=== PATIENT | female | born 1985 | race Caucasian/White ===

== ENCOUNTER 2017-06-23 19:24 | Emergency (ER) | payer MEDICAID ==
[~2017-06-23] VITALS: Ht 162.6 cm; Wt 113.3 kg
[2017-06-23 19:27] VITALS: BP 127/82
[2017-06-23] MEDS ORDERED: LIDOCAINE 1%, 20ML ONE (19:43)
[2017-06-23] MEDS ORDERED: DIPH,PERTUSS(ACELL),TET VAC/PF 0.5 ML IM-VACC ONE ×2 (19:43→20:00)
[2017-06-23] MEDS ORDERED: LIDOCAINE 1%, 20ML SQ ONE (20:00)
[2017-06-23] MEDS ORDERED: BACITRACIN ZINC OINT 500U/GM, 0.9 GM ONE (21:34)
== END 2017-06-23 20:11 | disposition home or self-care (01) ==
LOC: ED 20:05
DX: S61.210A Laceration without foreign body of right index finger without damage to nail, initial encounter (principal); W25.XXXA Contact with sharp glass, initial encounter; Y93.G1 Activity, food preparation and clean up; Y92.000 Kitchen of unspecified non-institutional (private) residence as the place of occurrence of the external cause; Y99.8 Other external cause status
CPT/HCPCS: 12002; 90471; 90715; 99283

== ENCOUNTER 2018-08-31 15:38 | Emergency (ER) | payer MEDICAID ==
[~2018-08-31] VITALS: Ht 162.6 cm; Wt 99.9 kg
[2018-08-31 17:18] LABS: BASOPHILS # (AUTO) 0.03 x10^3/uL (0-0.1); BASOPHILS % (AUTO) 0 % (0-1); EOSINOPHILS # (AUTO) 0.05 x10^3/uL (0-0.4); EOSINOPHILS % (AUTO) 0 % (1-7); LYMPHOCYTES # (AUTO) 2.53 x10^3/uL (1-3.4); LYMPHOCYTES % (AUTO) 19 % (22-44); MD NO; MEAN CORPUSCULAR HEMOGLOBIN 29.9 pg (27.0-34.8); MEAN CORPUSCULAR HGB CONC 33.7 g/dL (32.4-35.8); MEAN CORPUSCULAR VOLUME 88.7 fL (80-100); MEAN PLATELET VOLUME 7.4 fL (7.4-10.4); MONOCYTES # (AUTO) 1.14 x10^3/uL (0.2-0.8); MONOCYTES % (AUTO) 9 % (2-9); NEUTROPHILS # (AUTO) 9.34 x10^3/uL (1.8-6.8); NEUTROPHILS % (AUTO) 71 % (42-75); PLATELET COUNT 351 x10^3/uL (130-400); RED CELL DISTRIBUTION WIDTH 13.4 % (9.6-15.2)
[2018-08-31 17:30] LABS: ALANINE AMINOTRANSFERASE 27 U/L (12-78); ALBUMIN 3.2 g/dL (3.4-5.0); ANION GAP 6 mmol/L (5-15); CALCIUM 8.5 mg/dL (8.5-10.1); CHLORIDE 107 mmol/L (98-107); CREATININE 0.99 mg/dL (0.55-1.02)
[2018-08-31 17:35] LABS: ALKALINE PHOSPHATASE 85 U/L (45-117); BILIRUBIN,TOTAL 0.7 mg/dL (0.2-1.0); TOTAL PROTEIN 7.4 g/dL (6.4-8.2)
[2018-08-31 17:41] LABS: MICROSCOPIC INDICATED
[2018-08-31 17:42] LABS: CULTURE INDICATED? YES
[2018-08-31] MEDS ORDERED: CEFTRIAXONE 1,000 MG ONE (18:46)
[2018-08-31] MEDS ORDERED: CEFTRIAXONE 1,000 MG IM ONE (19:00)
[2018-08-31 19:26] VITALS: BP 109/78
== END 2018-08-31 19:37 | disposition home or self-care (01) ==
LOC: ED 19:15
DX: N30.90 Cystitis, unspecified without hematuria (principal); D72.829 Elevated white blood cell count, unspecified
CPT/HCPCS: 36415; 80053; 81001; 84703; 85025; 87077; 87086; 87186; 96372; 99283; J0696

== ENCOUNTER 2020-03-21 16:36 | Emergency (ER) | payer MEDICAID ==
[~2020-03-21] VITALS: Ht 162.6 cm; Wt 84.2 kg
--- NOTE | 2020-03-21 17:02 | NUR ---
FIRST CONTACT WITH PT. PT CO OF PAINFUL URINATION, FREQUENCY, URGENCY. PT DENIES ANY OTHER SX. PT'S AOX4. RESPS EVEN AND UNLABORED. BP/SPO2 MONITORS IN PLACE. CALL LIGHT WITHIN REACH. PT AWARE OF UA. URINE CUP IN ROOM.
--- NOTE | 2020-03-21 17:25 | NUR ---
PT AMB TO BR AND BACK TO ROOM WITH STEADY GAIT. PT PROVIDED URINE SAMPLE. URINE COLLECTED AND UA SENT.
[2020-03-21 17:46] LABS: MICROSCOPIC INDICATED
[2020-03-21 17:48] LABS: HCG UR SG 1.024 (1.003-1.030)
[2020-03-21 17:55] VITALS: BP 103/68
--- NOTE | 2020-03-21 18:02 | NUR ---
PT RESTING IN [facility]. PT'S AOX4. RESPS EVEN AND UNLABORED. BP/SPO2 MONITORS IN PLACE. CALL LIGHT WITHIN REACH.
[2020-03-21] MEDS ORDERED: PHENAZOPYRIDINE 200 MG TABLET ONE (18:46)
[2020-03-21] MEDS ORDERED: NITROFURANTOIN (MACROBID) 100 MG CAPSULE ONE (18:46)
--- NOTE | 2020-03-21 18:50 | NUR ---
PT MEDICATED PER EMAR. PT TOLERATED WELL.
--- NOTE | 2020-03-21 18:51 | NUR ---
Patient given discharge instructions and they have confirmed that they understand the instructions. Patient ambulatory with steady gait.
--- NOTE | 2020-03-21 18:51 | NUR ---
Patient given discharge instructions and they have confirmed that they understand the instructions. Patient ambulatory with steady gait.
[2020-03-21] MEDS ORDERED: NITROFURANTOIN (MACROBID) 100 MG CAPSULE PO ONE (19:00)
[2020-03-21] MEDS ORDERED: PHENAZOPYRIDINE 200 MG TABLET PO ONE (19:00)
== END 2020-03-21 18:53 | disposition home or self-care (01) ==
LOC: ED 18:30
DX: N30.00 Acute cystitis without hematuria (principal); R10.9 Unspecified abdominal pain; Z90.49 Acquired absence of other specified parts of digestive tract
CPT/HCPCS: 81001; 81025; 87077; 87086; 87186; 99283

== ENCOUNTER 2021-04-04 00:06 | Emergency (ER) | payer BC, MEDICAID ==
[~2021-04-04] VITALS: Ht 160 cm; Wt 80.0 kg
[2021-04-04] MEDS ORDERED: ONDANSETRON ODT 4 MG ONE (00:57)
[2021-04-04] MEDS ORDERED: KETOROLAC 30 MG/1 ML ONE (00:57)
[2021-04-04] MEDS ORDERED: KETOROLAC 30 MG/1 ML IM ONE (01:00)
[2021-04-04] MEDS ORDERED: ONDANSETRON ODT 4 MG PO ONE (01:00)
[2021-04-04 01:05] LABS: BASOPHILS % (AUTO) 0 % (0-1); EOSINOPHILS % (AUTO) 0 % (1-7); LYMPHOCYTES % (AUTO) 23 % (22-44); MEAN CORPUSCULAR HEMOGLOBIN 29.1 pg (27.0-34.8); MEAN CORPUSCULAR HGB CONC 33.8 g/dL (32.4-35.8); MEAN PLATELET VOLUME 6.8 fL (7.4-10.4); MONOCYTES % (AUTO) 7 % (2-9); NEUTROPHILS % (AUTO) 70 % (42-75); PLATELET COUNT 367 x10^3/uL (130-400); RED BLOOD COUNT 3.91 x10^6/uL (3.82-5.3); RED CELL DISTRIBUTION WIDTH 14.9 % (9.6-15.2)
[2021-04-04 01:15] LABS: ALBUMIN 3.2 g/dL (3.4-5.0); ANION GAP 4 mmol/L (5-15); CALCIUM 8.5 mg/dL (8.5-10.1); CHLORIDE 108 mmol/L (98-107)
[2021-04-04 01:20] LABS: ALANINE AMINOTRANSFERASE 16 U/L (12-78); ALKALINE PHOSPHATASE 71 U/L (45-117); BILIRUBIN,TOTAL 0.3 mg/dL (0.2-1.0); CREATININE 0.67 mg/dL (0.55-1.02)
[2021-04-04 02:23] LABS: MICROSCOPIC INDICATED
[2021-04-04] MEDS ORDERED: CEFDINIR 300 MG CAPSULE PO ONE (02:30)
[2021-04-04] MEDS ORDERED: HYDROcodone/APAP 5/325 TABLET PO ONE (02:30)
[2021-04-04] MEDS ORDERED: CEFDINIR 300 MG CAPSULE ONE (02:36)
[2021-04-04] MEDS ORDERED: HYDROcodone/APAP 5/325 TABLET ONE (02:36)
[2021-04-04 02:49] VITALS: BP 94/52
== END 2021-04-04 02:59 | disposition home or self-care (01) ==
LOC: ED 02:00
DX: N10 Acute pyelonephritis (principal); N20.0 Calculus of kidney; Z90.49 Acquired absence of other specified parts of digestive tract
CPT/HCPCS: 36415; 74176; 80053; 81001; 83690; 84703; 85025; 87077; 87086; 96372; 99284; J1885; Q0162; 87186